=== PATIENT | male | born 1965 | race Caucasian/White ===

== ENCOUNTER 2016-06-03 06:10 | Emergency (ER) | payer OTHER ==
[~2016-06-03] VITALS: Ht 190.5 cm; Wt 102.2 kg
[~2016-06-03 06:10] MED LIST: NOHOMEMEDS
[2016-06-03] MEDS ORDERED: KEFLEX500 MG PO (07:02)
[2016-06-03] MEDS ORDERED: PERCOCET 5/31 TABLET PO (07:02)
[2016-06-03 07:24] VITALS: BP 156/101
== END 2016-06-03 07:25 | disposition home or self-care (01) ==
LOC: EME 06:10
PROC: 3E0234Z Introduction of Serum, Toxoid and Vaccine into Muscle, Percutaneous Approach (ICD-10-PCS; principal; 2016-06-03)
DX: T23.271A Burn of second degree of right wrist, initial encounter (principal); X03.8XXA Other exposure to controlled fire, not in building or structure, initial encounter; Y93.89 Activity, other specified; Z23 Encounter for immunization; Z86.14 Personal history of Methicillin resistant Staphylococcus aureus infection; F17.200 Nicotine dependence, unspecified, uncomplicated; Z71.6 Tobacco abuse counseling
CPT/HCPCS: 99281; 99284

== ENCOUNTER 2017-03-06 08:50 | Emergency (ER) | payer OTHER ==
[~2017-03-06] VITALS: Ht 190.5 cm; Wt 105.2 kg
[~2017-03-06 08:50] MED LIST changes: +KEFLEX500 MG PO; +PERCOCET 5/31 TABLET PO
[2017-03-06] MEDS ORDERED: PERCOCET 5/31 TABLET PO (11:14)
[2017-03-06] MEDS ORDERED: PREDNISONE50 MG PO (11:14)
[2017-03-06 11:21] VITALS: BP 150/102
== END 2017-03-06 11:26 | disposition home or self-care (01) ==
LOC: EME 08:50
DX: M54.12 Radiculopathy, cervical region (principal); I10 Essential (primary) hypertension; Z86.14 Personal history of Methicillin resistant Staphylococcus aureus infection; F17.200 Nicotine dependence, unspecified, uncomplicated
CPT/HCPCS: 99281; 99283

== ENCOUNTER 2017-04-10 09:06 | Emergency (ER) | payer OTHER ==
[~2017-04-10] VITALS: Ht 190.5 cm; Wt 104.5 kg
[~2017-04-10 09:06] MED LIST changes: +PREDNISONE50 MG PO
[2017-04-10] MEDS ORDERED: LYRICA75 MG PO (09:49)
[2017-04-10] MEDS ORDERED: LEVOTHYROXINE25 MCG PO (09:50)
[2017-04-10] MEDS ORDERED: NAPROXEN500 MG PO (09:50)
[2017-04-10] MEDS ORDERED: DUEXIS 800-26.1 EACH PO (09:52)
[2017-04-10] MEDS ORDERED: ALPRAZOLAM0.25 M2 PO (09:53)
[2017-04-10] MEDS ORDERED: PENNSAID2 GM TP (09:55)
[2017-04-10 09:58] LABS: BASOPHIL (%) 0.3 % (0-1); EOSINOPHIL (%) 2.1 % (0-5); EOSINOPHIL COUNT 0.2 K/uL (0-0.3); HEMATOCRIT 44.9 % (38.0-50.0); HEMOGLOBIN 15.5 G/DL (12.5-16.6); IMMATURE GRANULOCYTE (%) 0.4 % (0.0-0.7); LYMPHOCYTE (%) 9.1 % (15-42); MCH 30.8 PG (29.0-34.0); MCHC 34.5 G/DL (30.0-36.0); MCV 89.3 FL (86-99); MONOCYTE (%) 8.9 % (3-12); NEUTROPHIL (%) 79.2 % (45-76); NEUTROPHIL COUNT 8.9 K/uL (1.8-6.4); PLATELET COUNT 210 K/uL (156-360); RBC DIS.WIDTH-CV 12.5 % (11.8-14.6); RBC DIS.WIDTH-SD 41.3 % (39-53); RED BLOOD COUNT 5.03 M/uL (4.00-5.50); WHITE BLOOD COUNT 11.3 K/uL (4.1-10.2)
[2017-04-10 10:06] LABS: ALBUMIN 3.9 g/dL (3.2-4.8); CHLORIDE 103 mEq/L (99-109); POTASSIUM 4.3 mEq/L (3.7-5.4); SODIUM 136 mEq/L (136-147)
[2017-04-10 10:09] LABS: GLUCOSE 97 mg/dL (70-99); TOTAL PROTEIN 6.6 g/dL (6.4-8.3)
[2017-04-10 10:12] LABS: ALKALINE PHOSPHATASE 56 IU/L (3-129); CREATININE 0.9 mg/dL (0.6-1.3); GFR ESTIMATE (CALCULATED) > 59 mL/min/ (58.99-99999)
[2017-04-10 10:13] LABS: UREA NITROGEN (BUN) 12 mg/dL (9-23)
[2017-04-10 10:14] LABS: AST (GOT) 25 IU/L (2-34)
[2017-04-10 10:15] LABS: ALT (GPT) 48 IU/L (3-49)
[2017-04-10 11:04] LABS: APPEARANCE CLEAR ((CLEAR)); BILIRUBIN NEGATIVE; BLOOD NEGATIVE; COLOR YELLOW ((YELLOW)); GLUCOSE (STRIP) NEGATIVE; KETONES NEGATIVE; LEUKOCYTES TRACE; NITRITE NEGATIVE; PROTEIN (STRIP) NEGATIVE; SPECIFIC GRAVITY 1.023 (1.000-1.030); UROBILINOGEN 0.2 MG/DL (0.2-1.0)
[2017-04-10 11:12] LABS: BACTERIA RARE /HPF; EPITHELIAL CELLS NONE SEEN /HPF; MUCUS 1+ /LPF; RED BLOOD CELLS 0-5 /HPF (0-5); UCUL ADDED? YES
[2017-04-10] MEDS ORDERED: LEVAQUIN500 MG PO (11:24)
[2017-04-10] MEDS ORDERED: PERCOCET 5/31 TABLET PO (11:24)
[2017-04-10 11:45] VITALS: BP 125/83
== END 2017-04-10 11:45 | disposition home or self-care (01) ==
LOC: EME 09:06
PROVIDERS: Emergency Medicine
DX: N45.1 Epididymitis (principal); R10.32 Left lower quadrant pain; Z86.14 Personal history of Methicillin resistant Staphylococcus aureus infection; Z72.0 Tobacco use
CPT/HCPCS: 76870; 80053; 81003; 85025; 87086; 87491; 87591; 93975; 99281; 99284; J2270; J3010

== ENCOUNTER 2017-05-26 06:58 | Emergency (ER) | payer OTHER ==
[~2017-05-26] VITALS: Ht 190.5 cm; Wt 104.2 kg
[~2017-05-26 06:58] MED LIST changes: +ALPRAZOLAM0.25 M2 PO; +DUEXIS 800-26.1 EACH PO; +LEVAQUIN500 MG PO; +LEVOTHYROXINE25 MCG PO; +LYRICA75 MG PO; +NAPROXEN500 MG PO; +PENNSAID2 GM TP
[2017-05-26 07:51] LABS: HEMATOCRIT 47.5 % (38.0-50.0); HEMOGLOBIN 16.5 G/DL (12.5-16.6); MCH 30.8 PG (29.0-34.0); MCHC 34.7 G/DL (30.0-36.0); MCV 88.8 FL (86-99); PLATELET COUNT 221 K/uL (156-360); RBC DIS.WIDTH-CV 12.4 % (11.8-14.6); RBC DIS.WIDTH-SD 40.4 % (39-53); RED BLOOD COUNT 5.35 M/uL (4.00-5.50); WHITE BLOOD COUNT 6.4 K/uL (4.1-10.2)
[2017-05-26 08:02] LABS: ALBUMIN 4.1 g/dL (3.2-4.8); CHLORIDE 105 mEq/L (99-109); POTASSIUM 4.5 mEq/L (3.7-5.4); SODIUM 135 mEq/L (136-147)
[2017-05-26 08:05] LABS: GLUCOSE 105 mg/dL (70-99)
[2017-05-26 08:06] LABS: TOTAL BILIRUBIN 0.4 mg/dL (0.0-1.0)
[2017-05-26 08:08] LABS: ALKALINE PHOSPHATASE 58 IU/L (3-129); GFR ESTIMATE (CALCULATED) > 59 mL/min/ (58.99-99999)
[2017-05-26 08:09] LABS: UREA NITROGEN (BUN) 12 mg/dL (9-23)
[2017-05-26 08:10] LABS: AST (GOT) 21 IU/L (2-34)
[2017-05-26 08:11] LABS: ALT (GPT) 36 IU/L (3-49)
[2017-05-26 08:12] LABS: LIPASE 40 U/L (1.0-51.0)
[2017-05-26 08:30] LABS: APPEARANCE CLEAR ((CLEAR)); BILIRUBIN NEGATIVE; BLOOD NEGATIVE; COLOR YELLOW ((YELLOW)); GLUCOSE (STRIP) NEGATIVE; KETONES NEGATIVE; LEUKOCYTES NEGATIVE; NITRITE NEGATIVE; PROTEIN (STRIP) NEGATIVE; SPECIFIC GRAVITY 1.025 (1.000-1.030); UROBILINOGEN 0.2 MG/DL (0.2-1.0)
[2017-05-26] MEDS ORDERED: ZOFRAN ODT4 MG PO (09:03)
[2017-05-26] MEDS ORDERED: BACTRIM,SEPT1 TABLET PO (09:03)
[2017-05-26 09:46] VITALS: BP 117/88
== END 2017-05-26 09:52 | disposition home or self-care (01) ==
LOC: EME 06:58
PROVIDERS: Nurse Practitioner Family
PROC: 0H96XZZ Drainage of Back Skin, External Approach (ICD-10-PCS; principal; 2017-05-26)
DX: L72.3 Sebaceous cyst (principal); R11.2 Nausea with vomiting, unspecified; F17.200 Nicotine dependence, unspecified, uncomplicated; Z86.14 Personal history of Methicillin resistant Staphylococcus aureus infection
CPT/HCPCS: 80053; 81003; 83690; 85027; 99281; 99285; J1885; J2405; J3010; J7030